=== PATIENT | male | born 1965 | race Two or more races ===

== ENCOUNTER 2023-08-22 07:58 | Emergency (ER) | payer MEDICARE, MEDICAID ==
[~2023-08-22] VITALS: Ht 161.3 cm; Wt 95.8 kg
[~2023-08-22 07:58] MED LIST: INSU100V36 SQ; LANTUS SQ; LEVO500T2 PO; LISI30TA39 PO; NORCO10T PO; SULF-117 PO
[2023-08-22 08:03] VITALS: BP 133/64; PULSE 94; TEMP 98.9; O2SAT 97
[2023-08-22] MEDS: HYDROcodone/acetaminophen 5mg/325mg tablet PO ONE (09:34)
[2023-08-22 09:37] VITALS: RESP 18
[2023-08-22 10:46] LABS: BASOPHILS % (AUTO) 0.2 % (0-1); EOSINOPHILS # (AUTO) 0.2 X10'3 (0-0.9); EOSINOPHILS % (AUTO) 1.4 % (0-6); HEMATOCRIT 40.6 % (42.0-52.0); HEMOGLOBIN 13.6 g/dl (14.0-17.9); LYMPHOCYTES # (AUTO) 1.4 X10'3 (1.1-4.8); LYMPHOCYTES % (AUTO) 12.2 % (21-51); MEAN CORPUSCULAR HGB CONC 33.4 g/dL (33.0-36.5); MEAN CORPUSCULAR VOLUME 92.8 FL (78-98); MEAN PLATELET VOLUME 6.7 FL (7.4-10.4); MONOCYTES # (AUTO) 0.7 X10'3 (0-0.9); MONOCYTES % (AUTO) 6.1 % (2-12); NEUTROPHILS # (AUTO) 9.4 X10'3 (1.8-7.7); NEUTROPHILS % (AUTO) 80.1 % (42-75); PLATELET COUNT 357 X10'3 (140-440); RED BLOOD COUNT 4.37 X10'6 (4.70-6.10); RED CELL DISTRIBUTION WIDTH 12.8 % (11.5-14.5); WHITE BLOOD COUNT 11.7 X10'3 (4.5-11.0)
[2023-08-22] MEDS ORDERED: AMOX-117 PO (11:46)
[2023-08-22] MEDS: amox tr/potassium clavulanate 875/125mg TAB PO ONE (11:49)
== END 2023-08-22 11:51 | disposition home or self-care (01) ==
LOC: ER 07:58
DX: R59.1 Generalized enlarged lymph nodes (principal); M25.561 Pain in right knee; I10 Essential (primary) hypertension; E11.9 Type 2 diabetes mellitus without complications; F12.90 Cannabis use, unspecified, uncomplicated; Z98.890 Other specified postprocedural states; Z72.89 Other problems related to lifestyle; Z79.899 Other long term (current) drug therapy; Z79.2 Long term (current) use of antibiotics
CPT/HCPCS: 36415; 73564; 84145; 85025; 99284

== ENCOUNTER 2025-04-19 08:14 | Outpatient (CLI) | payer MEDICARE, MEDICAID ==
--- NOTE | 2025-04-19 09:11 | RADIOLOGY REPORT ---
Indication: VENTRAL HERNIA WITHOUT OBSTRUCTION OR GANGRENE Technique: CT axial images of the abdomen and pelvis are obtained without contrast. Coronal and sagittal reformats were obtained. Radiation Dose Information: CTDI volume is 31.5 mGy. Dose-length product is 1592 mGy*cm Comparison: None FINDINGS: There is limited interpretation of the abdomen and pelvis without administration of intravenous contrast. Lung bases demonstrate no pleural effusion. Adrenal glands, spleen unremarkable in shape. Pancreatic parenchymal atrophy. No CT evidence for cholelithiasis. Liver unremarkable in shape. No hydronephrosis. Nonobstructing left renal calculus measuring 2 mm. Stomach partially distended. Small bowel loops are normal in caliber. Moderate volume stool in the colon. Normal appendix. Abdominal aortic atherosclerotic disease. Bladder partially distended. No free pelvic fluid. No inguinal lymphadenopathy. Moderate bilateral sacroiliac degenerative joint disease. [id number] thoracolumbar degenerative disc disease. Periumbilical hernia containing fat measuring 1.9 x 1.2 cm. IMPRESSION: Limited evaluation without contrast. Small periumbilical hernia containing fat measuring 1.9 x 1.2 cm. Atherosclerotic disease. 2 mm nonobstructing left renal calculus. Other findings as described.
== END 2025-04-19 23:59 | disposition home or self-care (01) ==
LOC: RAD 08:14
PROVIDERS: ATTEND Student in an Organized Health Care Education/Training Program
DX: K42.9 Umbilical hernia without obstruction or gangrene (principal); K43.9 Ventral hernia without obstruction or gangrene; R19.5 Other fecal abnormalities; I70.0 Atherosclerosis of aorta; M51.35 Other intervertebral disc degeneration, thoracolumbar region; M46.1 Sacroiliitis, not elsewhere classified; K86.89 Other specified diseases of pancreas
CPT/HCPCS: 74176